=== PATIENT | female | born 1990 | race Caucasian/White ===

== ENCOUNTER 2016-06-20 14:25 | Emergency (ER) | payer MEDICAID, OTHER ==
[~2016-06-20] VITALS: Ht 152.4 cm; Wt 60.6 kg
[~2016-06-20 14:25] MED LIST: BIRTH CONTROL PO; NITR100C4 PO; PYRI200T4 PO
[2016-06-20 14:35] VITALS: BP 132/88; PULSE 86; RESP 16; TEMP 98.2; O2SAT 100
[2016-06-20] MEDS ORDERED: PRED20 PO (15:06)
[2016-06-20] MEDS ORDERED: VIST25CA PO (15:06)
--- NOTE | 2016-06-20 15:12 | PD ---
HPI Chief Complaint: Skin Problem Time Seen by Provider: 15:08 Travel History International Travel<30 days: No Contact w/Intl Traveler<30days: No Traveled to known affect area: No History of Present Illness HPI 26-year-old female that presents to the ED for evaluation of skin rash. Per patient she's had this rash for the past 3 months for which she went to see a director of blood who recommended that she gets allergy testing. Per patient she does get relief with prednisone don't think that seems to work. Per patient she really has an appointment with an [employer] operations intelligence chief but she would not be able to get seen for a while. She wanted to come here to get evaluated to see if she could get some prednisone to help with the rash as itchiness is severe. She denies any fevers chills or sweats. No new injuries. No new symptoms. Per patient the rash is mainly on the extremities but also on the torso. PFSH Past Medical History Asthma: No Cardiovascular Problems: No Diabetes: No Diminished Hearing: No Glaucoma: No Hepatitis: No Hiatal Hernia: No Hypertension: No Medical other: Yes (IRRITABLE BOWEL) Respiratory: Yes (COLD LAST WEEK) Immunizations Current: Yes Thyroid Disease: No Tetanus Vaccination: < 5 Years ?: Not : 2 Para: 1 Miscarriage: 0 : 1 Past Surgical History Section: Yes Ear Surgery: Yes (BILAT "PE TUBES") Oral Surgery: Yes (OPEN SEPTAL RECONSTRUCTION X2) Other Surgery: Yes (SINUS SURGERY) Social History Alcohol Use: Yes (OCC) Tobacco Use: Yes (1/2 ppd) Substance Use: No Allergies-Medications (Allergen,Severity, Reaction): Coded Allergies: Ceclor (Verified Allergy, Severe, MD AWARE,RASH CAUSED BY ADDITIVE,NOT BY CECLOR!, 06/20/16) Cipro (Verified Allergy, Severe, Rash, 06/20/16) Reported Meds & Prescriptions Reported Meds & Active Scripts Active Prednisone 20 Mg Tab 20 Mg PO BID Vistaril (Hydroxyzine Pamoate) 25 Mg Cap 25 Mg PO Q6H PRN Reported [ Control] 1 Tab PO HS Review of Systems Except as stated in HPI: all other systems reviewed are Neg Physical Exam Narrative GENERAL: SKIN: Warm and dry. HEAD: Atraumatic. Normocephalic. Patient has a pruritic rash that appears to be high be looking with scars from scratching on the upper extremities as well as the lower extremities. Mainly around the joints areas. EYES: Pupils equal and round. No scleral icterus. No injection or drainage. ENT: No nasal bleeding or discharge. Mucous membranes pink and moist. Tongue is midline. No uvula deviation. NECK: Trachea midline. No JVD. CARDIOVASCULAR: Regular rate and rhythm. No murmurs, S3, S4. RESPIRATORY: No accessory muscle use. Clear to auscultation. Breath sounds equal bilaterally. GASTROINTESTINAL: Abdomen soft, non-tender, nondistended. Hepatic and splenic margins not palpable. MUSCULOSKELETAL: Extremities without clubbing, cyanosis, or edema. No obvious deformities. Full range of motion of the upper and lower extremities bilaterally. 2+ pulses bilaterally. NEUROLOGICAL: Awake and alert. No obvious cranial nerve deficits. Motor grossly within normal limits. Five out of 5 muscle strength in the arms and legs. Normal speech. PSYCHIATRIC: Appropriate mood and affect; insight and judgment normal. Data Data Last Documented VS Vital Signs Date Time Temp Pulse Resp B/P Pulse Ox O2 Delivery O2 Flow Rate FiO2 06/20/16 14:35 98.2 86 16 132/88 100 MDM Medical Decision Making Medical Screen Exam Complete: Yes Emergency Medical Condition: Yes Medical Record Reviewed: Yes Differential Diagnosis tinea corporis versus dermatitis versus allergic dermatitis Narrative Course 26-year-old female that presents to the ED for evaluation of dermatitis. Patient was properly examined and was found to have signs and symptoms consistent with appears to be allergic dermatitis. Patient here mainly for a prescription for prednisone. Patient was given prescription for this. Patient was given Atarax. Patient was told to follow with [employer] operations intelligence chief. See ED for any worsening symptoms. Diagnosis Primary Impression: Dermatitis Patient Instructions: General Instructions Additional Instructions: Take medications as prescribed. Follow with PCP. See ED for any worsening symptoms. Continue applying or creams as prescribed by your director of blood. Med/Other Pt SpecificInfo: Prescription(s) given Scripts Prednisone 20 Mg Tab20 Mg PO BID #10 TAB Prov:Earnest Murcia MD 06/20/16 Hydroxyzine Pamoate (Vistaril)25 Mg Cap25 Mg PO Q6H PRN (ITCHING) #30 CAP Ref 0 Prov:Earnest Murcia MD 06/20/16 Disposition: 01 DISCHARGE HOME Condition: Stable Dima Menezes Jun 20, 2016 15:12
== END 2016-06-20 15:17 | disposition home or self-care (01) ==
LOC: PHEFT 14:25
DX: L30.9 Dermatitis, unspecified (principal); F17.210 Nicotine dependence, cigarettes, uncomplicated
CPT/HCPCS: 99282